=== PATIENT | female | born 1990 | race African-American/Black ===

== ENCOUNTER 2016-09-06 20:51 | Emergency (ER) | payer SELFPAY ==
[2016-09-06 20:59] VITALS: BP 111/70
[2016-09-06] MEDS ORDERED: LIDOCAINE 1%/EPINEPHRINE INJ 20 ML VIAL INJ ONE (21:30)
--- NOTE | 2016-09-06 21:33 | ER Document Report ---
ED Extremity Problem, Upper - General Chief Complaint: Arm Pain Stated Complaint: LEFT ARM PAIN Time Seen by Provider: 09/06/16 21:20 Notes: Patient is a 26-year-old female that comes emergency department for chief complaint of discomfort in her left arm at the location of her Nexplanon control, she states that she donated blood and ever since they did this the area has had intermittent tenderness. She also reports intermittent and irregular bleeding vaginally. Patient has almost had the implanted device in for 3 years, she states she believes she wants it taken out. She denies any fever, swelling, redness, denies any other symptoms. TRAVEL OUTSIDE OF THE [place] IN LAST 30 DAYS: No - Related Data Allergies/Adverse Reactions: amoxicillin [Amoxicillin] Allergy (Severe, Verified 10/10/14 00:57) Anaphylaxis Penicillins Allergy (Severe, Verified 10/10/14 00:57) Anaphylaxis citric acid Allergy (Intermediate, Verified 10/10/14 00:57) Anaphylaxis Past Medical History - General Information source: Patient - Social History Smoking Status: Never Smoker Frequency of alcohol use: None Drug Abuse: None Lives with: Family Family History: Reviewed & Not Pertinent Patient has suicidal ideation: No Patient has homicidal ideation: No - Medical History Medical History: Negative Renal/ Medical History: Denies: Hx Peritoneal Dialysis Past Surgical History: Reports: Hx Orthopedic Surgery - Immunizations Hx Diphtheria, Pertussis, Tetanus Vaccination: Yes Review of Systems - Review of Systems Constitutional: No symptoms reported EENT: No symptoms reported Cardiovascular: No symptoms reported Respiratory: No symptoms reported Gastrointestinal: No symptoms reported Genitourinary: No symptoms reported Female Genitourinary: See HPI Musculoskeletal: See HPI Skin: See HPI Hematologic/Lymphatic: No symptoms reported Neurological/Psychological: No symptoms reported Physical Exam - Vital signs Vitals: Temp Pulse Resp BP Pulse Ox 98.1 F 115 H 18 111/70 100 09/06/16 20:55 09/06/16 20:55 09/06/16 20:55 09/06/16 20:55 09/06/16 20:55 Interpretation: Normal - General General appearance: Alert, Anxious In distress: None - HEENT Head: Normocephalic, Atraumatic Eyes: Normal Conjunctiva: Normal Extraocular movements intact: Yes Eyelashes: Normal Pupils: PERRL Mouth/Lips: Normal Mucous membranes: Normal Pharynx: Normal Neck: Normal - Respiratory Respiratory status: No respiratory distress Chest status: Nontender Breath sounds: Normal. No: Decreased air movement Chest palpation: Normal - Cardiovascular Rhythm: Regular, Tachycardia Heart sounds: Normal auscultation, S1 appreciated, S2 appreciated Murmur: No - Abdominal Inspection: Normal Distension: No distension Bowel sounds: Normal Tenderness: Nontender Organomegaly: No organomegaly - Back Back: Normal, Nontender - Extremities General upper extremity: Other - There is the noted location of Nexplanon in the left medial arm, no erythema, swelling, or other abnormality noted, normal range of motion, normal distal neurovascular exam, normal strength of the upper extremity General lower extremity: Normal inspection, Nontender, Normal color, Normal ROM , Normal temperature, Normal weight bearing. No: Darshana's sign - Neurological Neuro grossly intact: Yes Cognition: Normal Orientation: AAOx4 Teague Coma Scale Eye Opening: Spontaneous Itzel Coma Scale Verbal: Oriented Teague Coma Scale Motor: Obeys Commands Teague Coma Scale Total: 15 Speech: Normal Motor strength normal: LUE, RUE, LLE, RLE Sensory: Normal - Psychological Associated symptoms: Normal affect, Normal mood - Skin Skin Temperature: Warm Skin Moisture: Dry Skin Color: Normal Course - Re-evaluation Re-evalutation: Patient initially nervous and mildly tachycardic, after discussion patient requested this removed, device removed with no abnormalities, afterwards tachycardia resolved, patient smiling and well-appearing. Wound dressed, discussed wound care, follow-up, return precautions, patient states understanding and agreement. - Vital Signs Vital signs: Temp Pulse Resp BP Pulse Ox 98.1 F 115 H 18 111/70 100 09/06/16 20:55 09/06/16 20:55 09/06/16 20:55 09/06/16 20:55 09/06/16 20:55 Procedures - Additional Procedures Left medial arm foreign body removal Notes: Foreign body removed from left medial forearm. Area cleaned with surgical cleanser, lidocaine with epinephrine used with about 1 cc to perform anesthesia , small 0.5 cm incision made horizontally, Nexplanon pushed through this with one end, it was grasped with needle drivers, removed with a tug in 1 intact piece. Area cleaned again, closure performed with Dermabond and Steri-Strips. No complications. Discharge - Discharge Clinical Impression: Left arm pain Condition: Stable Disposition: HOME, SELF-CARE Additional Instructions: The Steri-Strips should come off in the next couple of days, you can shower normally, the glue should dissolve and come off in about 5 days, if it does not you can apply topical antibiotic ointment to the area. Follow-up with [facility] for additional management. Return to emergency department for any concerning symptoms including redness, swelling, fever, or any other concerning symptoms. Referrals: [facility] [Provider Group] - Follow up as needed
== END 2016-09-06 23:20 | disposition home or self-care (01) ==
LOC: ER 20:51
PROC: 0JPV3HZ Removal of Contraceptive Device from Upper Extremity Subcutaneous Tissue and Fascia, Percutaneous Approach (ICD-10-PCS; principal; 2016-09-06)
DX: M79.602 Pain in left arm (principal); Z30.46 Encounter for surveillance of implantable subdermal contraceptive; N93.9 Abnormal uterine and vaginal bleeding, unspecified; R45.0 Nervousness; R00.0 Tachycardia, unspecified; Z87.892 Personal history of anaphylaxis; Z88.0 Allergy status to penicillin; Z91.018 Allergy to other foods
CPT/HCPCS: 99283; 11982; J3490

== ENCOUNTER 2016-10-21 22:56 | Emergency (ER) | payer SELFPAY | END 2016-10-21 23:30 | disposition left against medical advice (07) | LOC: ER 22:56 | DX: Z53.21 Procedure and treatment not carried out due to patient leaving prior to being seen by health care provider (principal) ==

== ENCOUNTER 2016-11-02 06:05 | Emergency (ER) | payer SELFPAY ==
--- NOTE | 2016-11-02 06:55 | ER Document Report ---
HPI - HPI Patient complains to provider of: Right shoulder pain Onset: Yesterday Onset/Duration: Gradual, Persistent Quality of pain: Throbbing Pain Level: 5 Context: 26-year-old female complaining of severe right shoulder pain that woke her up at 0500. Similar pain Fourth of October weekend and Motrin relieves it. Does not want to take any pain medicine. Lalo hair but not recently, last 2 weeks ago. No known injury. Associated Symptoms: None Exacerbated by: Movement - especially abduction Relieved by: Denies Similar symptoms previously: Yes Recently seen / treated by doctor: No - ROS ROS below otherwise negative: Yes Systems Reviewed and Negative: Yes All other systems reviewed and negative - REPRODUCTIVE LMP: 10-25-16 Reproductive: DENIES: : - DERM Skin Color: Normal Past Medical History - General Information source: Patient - Social History Smoking Status: Never Smoker Frequency of alcohol use: None Drug Abuse: None Lives with: Spouse/Significant other Family History: Reviewed & Not Pertinent Patient has suicidal ideation: No Patient has homicidal ideation: No - Medical History Medical History: Negative Notes: LMP OCTOBER 25- denies Renal/ Medical History: Denies: Hx Peritoneal Dialysis Surgical Hx: Negative Past Surgical History: Reports: Hx Orthopedic Surgery - Immunizations Hx Diphtheria, Pertussis, Tetanus Vaccination: Yes Vertical Provider Document - CONSTITUTIONAL Agree With Documented VS: Yes Exam Limitations: No Limitations General Appearance: Mild Distress - crying in pain and frustrated with the pain - INFECTION CONTROL TRAVEL OUTSIDE OF THE [place] IN LAST 30 DAYS: No - HEENT HEENT: Normocephalic - NECK Neck: Supple - RESPIRATORY Respiratory: Breath Sounds Normal, No Respiratory Distress O2 Sat by Pulse Oximetry: 100 - CARDIOVASCULAR Cardiovascular: Regular Rate, Regular Rhythm - MUSCULOSKELETAL/EXTREMETIES Musculoskeletal/Extremeties: Tender - right biceptital groove, right deltoid and trapezius, not hot, not red. negative: Edema Course - Re-evaluation Re-evalutation: 11/02/16 07:22 they decided that she wants anti inflammatory medication and muscle relaxer with the sling and heat - Vital Signs Vital signs: Temp Pulse Resp BP Pulse Ox 97.8 F 82 18 123/76 100 11/02/16 06:10 11/02/16 06:10 11/02/16 06:10 11/02/16 06:10 11/02/16 06:10 Procedures - Immobilization Right Arm Time completed: 07:34 Pre-Proc Neuro Vasc Exam: Normal Immobilizer type: Sling Performed by: RN Post-Proc Neuro Vasc Exam: Normal Alignment checked and good: Yes Discharge - Discharge Clinical Impression: right shoulder strain, Myalgia, Tendonitis Condition: Good Disposition: HOME, SELF-CARE Instructions: Tendonitis ([facility]), Sling as Treatment ([facility]), Warm Packs ([facility]), Anti-Inflammatory Medication ([facility]), Muscle Relaxers ([facility]), Muscle Strain ([facility]) Additional Instructions: warm compress sling for a few days see orthopedics for follow up to er if worse Please complete the patient satisfaction survey if you get one, and return it.. If you do not receive a survey, then you can go to the [facility] website, [email or web address] and place your comments about your very good care. Thank you very much. It was a pleasure being your medical provider today. Prescriptions: Ibuprofen [Motrin 600 mg Tablet] 600 mg PO Q8HP PRN #20 tablet PRN Reason: Cyclobenzaprine HCl [Flexeril 5 mg Tablet] 5 mg PO TID #15 tablet Referrals: MARQUEZ JAIN MD [ACTIVE STAFF] - Follow up as needed
[2016-11-02] MEDS ORDERED: CYCLOBENZAPRINE HCL 10 MG TABLET PO ONE (07:23)
[2016-11-02] MEDS ORDERED: IBUPROFEN 600 MG TABLET PO ONE (07:23)
[2016-11-02 08:13] VITALS: BP 98/67
== END 2016-11-02 08:12 | disposition home or self-care (01) ==
LOC: ER 06:05
DX: S43.401A Unspecified sprain of right shoulder joint, initial encounter (principal); M79.1 Myalgia; M77.9 Enthesopathy, unspecified; M25.511 Pain in right shoulder; X58.XXXA Exposure to other specified factors, initial encounter
CPT/HCPCS: 99283

== ENCOUNTER 2016-12-22 03:22 | Emergency (ER) | payer SELFPAY ==
--- NOTE | 2016-12-22 05:01 | RADIOLOGY REPORT (SQ) ---
EXAM DESCRIPTION: U/S OB TRANSVAGINAL W/O DOP COMPLETED DATE/TIME: 12/22/2016 4:46 am REASON FOR STUDY: vag bleeding preg COMPARISON: None. TECHNIQUE: Transvaginal static and realtime grayscale images acquired of the pelvis. Additional gerard cted spectral and color Doppler images recorded. All images stored on PACs. bHCG: Pending. LIMITATIONS: None. FINDINGS: UTERUS: The uterus measures 8.0 x 3.7 x 4.8 cm. The cervix measures 2.6 cm in length and it is closed. GESTATIONAL SAC: Yes. YOLK SAC: Yes. POLE: No. RIGHT ADNEXA: The right ovary measures 1.7 x 2.5 x 1.1 cm. Flow by Doppler was shown to the right ov bebo. LEFT ADNEXA: The left ovary measures 3.1 x 3.7 x 3.4 cm. Flow by Doppler was shown to the left ovary . There is a 1.6 cm cyst with peripheral vascularity, may represent a corpus luteum cyst. FREE FLUID: Trace amount of free fluid. IMPRESSION: Possible early intrauterine , no pole was seen at this time. Followup se rial beta HCG and ultrasound recommended to document a viable intrauterine and exclude a no nvisualized ectopic . Trimester of : First - 0 to 13 weeks. TECHNICAL DOCUMENTATION: JOB ID: [id number] [employer]- All Rights Reserved
--- NOTE | 2016-12-22 05:13 | ER Document Report ---
ED General - General Chief Complaint: Abdominal Pain Stated Complaint: POSSIBLE PANIC ATTACK WITH ABDOMINAL CRAMPING Time Seen by Provider: 12/22/16 03:49 Notes: Patient is a 26-year-old female at 5 weeks by last menstrual period who presents after having a fall will try to stand up in the end of her bed. Patient states she fell forward and hit her lower abdomen and back on the side of a dresser. She states approximately 5 minutes thereafter she did develop a sharp, constant stabbing pain in her right lower quadrant. States that she had multiple episodes of dry heaving associated with this pain. Nothing improves or worsens the pain. She denies any history of similar injuries or pain in the past. She has already had an appendectomy. She did have a small amount of vaginal spotting after that fall. Denies any pain at time of assessment. She has not seen her SHADING PAINTER regarding today's concerns. TRAVEL OUTSIDE OF THE [place] IN LAST 30 DAYS: No - Related Data Allergies/Adverse Reactions: amoxicillin [Amoxicillin] Allergy (Severe, Verified 12/22/16 03:36) Anaphylaxis Penicillins Allergy (Severe, Verified 12/22/16 03:36) Anaphylaxis citric acid Allergy (Intermediate, Verified 12/22/16 03:36) Anaphylaxis Past Medical History - General Information source: Patient - Social History Smoking Status: Never Smoker Chew tobacco use (# tins/day): No Frequency of alcohol use: None Drug Abuse: None Lives with: Spouse/Significant other Family History: Reviewed & Not Pertinent Renal/ Medical History: Denies: Hx Peritoneal Dialysis Past Surgical History: Reports: Hx Orthopedic Surgery - Immunizations Hx Diphtheria, Pertussis, Tetanus Vaccination: Yes Review of Systems - Review of Systems Notes: Constitutional: Negative for fever. HENT: Negative for sore throat. Eyes: Negative for visual changes. Cardiovascular: Negative for chest pain. Respiratory: Negative for shortness of breath. Gastrointestinal: Positive for abdominal pain Genitourinary: Negative for dysuria. Musculoskeletal: Negative for back pain. Skin: Negative for rash. Neurological: Negative for headaches, weakness or numbness. 10 point ROS negative except as marked above and in HPI. Physical Exam - Vital signs Vitals: Temp Pulse Resp BP Pulse Ox 98.5 F 106 H 18 123/93 H 100 12/22/16 03:28 12/22/16 03:28 12/22/16 03:28 12/22/16 03:28 12/22/16 03:28 Interpretation: Tachycardic Notes: PHYSICAL EXAMINATION: GENERAL: Well-appearing, well-nourished and in no acute distress. HEAD: Atraumatic, normocephalic. EYES: Pupils equal round and reactive to light, extraocular movements intact, sclera anicteric, conjunctiva are normal. ENT: nares patent, oropharynx clear without exudates. Moist mucous membranes. NECK: Normal range of motion, supple without lymphadenopathy LUNGS: Breath sounds clear to auscultation bilaterally and equal. No wheezes rales or rhonchi. HEART: Regular rate and rhythm without murmurs ABDOMEN: Soft, nontender, normoactive bowel sounds. No guarding, no rebound. No masses appreciated. EXTREMITIES: Normal range of motion, no pitting or edema. No cyanosis. NEUROLOGICAL: No focal neurological deficits. Moves all extremities spontaneously and on command. PSYCH: Normal mood, normal affect. SKIN: Warm, Dry, normal turgor, no rashes or lesions noted. Course - Re-evaluation Re-evalutation: 12/22/16 05:10 Patient presents with a mild amount of vaginal bleeding in the setting of an early first trimester . Patient did have mechanical fall tonight striking her lower abdomen and back. She has no abdominal tenderness at time of my exam. Transvaginal ultrasound is unable to visualize an definitive intrauterine at this time. Quantitative beta hCG is above 1500. No active bleeding at time of presentation. She is Rh positive. Patient's abdominal exam is otherwise benign without any focal tenderness. I do not suspect an acute appendicitis, pyelonephritis, cystitis, or bowel obstruction. At this time I have informed the patient that she needs to return to the emergency department or the women's clinic in 48 hours for recheck of her quantitative beta hCG to assess whether or not this is a normal or a possible ectopic . At this time will discharge with return precautions and follow-up recommendations. Verbal discharge instructions given a the bedside and opportunity for questions given. Medication warnings reviewed. Patient is in agreement with this plan and has verbalized understanding of return precautions and the need for primary care follow-up in the next 24-72 hours. - Vital Signs Vital signs: Temp Pulse Resp BP Pulse Ox 98.5 F 106 H 18 123/93 H 100 12/22/16 03:28 12/22/16 03:28 12/22/16 03:28 12/22/16 03:28 12/22/16 03:28 - Laboratory Laboratory results interpreted by me: 12/22/16 04:15 Beta HCG, Quant 2802.70 H - Diagnostic Test Radiology reviewed: Reports reviewed Discharge - Discharge Clinical Impression: Vaginal bleeding during , antepartum Condition: Good Disposition: HOME, SELF-CARE Additional Instructions: You need to return to the ED or the women's health clinic in 48 hours for a recheck of your hormone level. The ultrasound shows a likely intra- uterine but you are also very early in your . Please return if you develop severe abdominal pain, bleeding that goes through more than 2 pads for more than 2 hours, pass out, or have any other symptoms that are concerning to you. Please follow-up closely with your OBGYN regarding todays visit. Referrals: ALTAF MUÑIZ DO [[facility]] - 12/23/16
[2016-12-22 05:30] VITALS: BP 111/68
== END 2016-12-22 05:26 | disposition home or self-care (01) ==
LOC: ER 03:22
DX: O20.9 Hemorrhage in early pregnancy, unspecified (principal); O26.891 Other specified pregnancy related conditions, first trimester; R10.31 Right lower quadrant pain; W06.XXXA Fall from bed, initial encounter; R00.0 Tachycardia, unspecified; Z3A.01 Less than 8 weeks gestation of pregnancy; Z87.892 Personal history of anaphylaxis; Z88.0 Allergy status to penicillin; Z91.018 Allergy to other foods; Z90.49 Acquired absence of other specified parts of digestive tract
CPT/HCPCS: 36415; 76817; 84702; 99284

== ENCOUNTER 2017-01-07 04:47 | Emergency (ER) | payer MEDICAID ==
[2017-01-07] MEDS ORDERED: NORMAL SALINE 1000 ML 1,000 ML IV ONE (05:26)
[2017-01-07] MEDS ORDERED: ONDANSETRON HCL INJ/PF 4 MG/2 ML SDV IV ONE (05:26)
[2017-01-07 05:30] LABS: ABSOLUTE BASOPHILS # (AUTO) 0.1 10^3/uL (0.0-0.2); ABSOLUTE EOSINOPHILS # (AUTO) 0.1 10^3/uL (0.0-0.6); ABSOLUTE LYMPHOCYTES (AUTO) 1.5 10^3/uL (0.5-4.7); ABSOLUTE MONOCYTES (AUTO) 0.8 10^3/uL (0.1-1.4); ABSOLUTE NEUT (AUTO) 8.8 10^3/uL (1.7-8.2); BASOPHILS % (AUTO) 0.5 % (0-2); EOSINOPHILS % (AUTO) 0.6 % (0-6); HEMATOCRIT 34.8 % (36.0-47.0); HEMOGLOBIN 11.9 g/dL (12.0-15.5); HGB HCT DIFFERENCE 0.9; LYMPHOCYTES % (AUTO) 13.4 % (13-45); MEAN CORPUSCULAR HEMOGLOBIN 27.8 pg (27.0-33.4); MEAN CORPUSCULAR HGB CONC 34.2 g/dL (32.0-36.0); MEAN CORPUSCULAR VOLUME 81 fl (80-97); MONOCYTES % (AUTO) 6.9 % (3-13); RED BLOOD COUNT 4.27 10^6/uL (3.72-5.28); RED CELL DISTRIBUTION WIDTH 12.2 % (11.5-14.0); SEGMENTED NEUTROPHILS % (AUTO) 78.6 % (42-78); WHITE BLOOD COUNT 11.2 10^3/uL (4.0-10.5)
[2017-01-07 05:58] LABS: ALANINE AMINOTRANSFERASE 22 U/L (9-52); ALBUMIN 4.4 g/dL (3.5-5.0); ALKALINE PHOSPHATASE 48 U/L (38-126); ANION GAP 13 (5-19); ASPARTATE AMINO TRANSFERASE 19 U/L (14-36); BILIRUBIN,DIRECT 0.3 mg/dL (0.0-0.4); BILIRUBIN,TOTAL 0.7 mg/dL (0.2-1.3); BLOOD UREA NITROGEN 8 mg/dL (7-20); CALCIUM 10.2 mg/dL (8.4-10.2); CARBON DIOXIDE 24 mmol/L (22-30); CHLORIDE 103 mmol/L (98-107); CREATININE RESULT 0.71 mg/dL (0.52-1.25); GLUCOSE 81 mg/dL (75-110); LIPASE 75.7 U/L (23-300); POTASSIUM 3.8 mmol/L (3.6-5.0); SODIUM 139.7 mmol/L (137-145); TOTAL PROTEIN 6.8 g/dL (6.3-8.2)
[2017-01-07] MEDS ORDERED: CEFTRIAXONE INJ 500 MG VIAL IM ONE (06:27)
[2017-01-07] MEDS ORDERED: LIDOCAINE 1% INJ-PF (10 MG/ML) 30 ML SDV INFIL ONE (06:27)
--- NOTE | 2017-01-07 06:40 | ER Document Report ---
ED GI/ - General Information source: Patient TRAVEL OUTSIDE OF THE [place] IN LAST 30 DAYS: No - HPI Patient complains to provider of: Vaginal bleeding - spotting, Vomiting Associated symptoms: Other - see above <TANIA BERMUDEZ - Last Filed: 01/07/17 11:14> <SKYE FERGUSON - Last Filed: 01/07/17 15:01> - General Chief Complaint: OB Problem (<20wks) Stated Complaint: ABDOMINAL PAIN Time Seen by Provider: 01/07/17 06:21 Notes: Patient is a 26 year old female who presents to the ED with complaints of nausea and vomiting. Patient states she has been unable to hold any food down since Thursday (01/05/2017) and she has also been having dry heaving. She has been taking Dramamine for the nausea and states it has made her symptoms worse. She denies any pain currently but states that she has had some burning in her lower abdomen but states she feels it is from being hungry. She was having pain on her left side, she states she has a history of ovarian cysts and states the pain she was feeling felt similar to that. on 12/22/16 patient had an ultrasound that showed a possible intrauterine . She states she has had some spotting. (TANIA BERMUDEZ) - Related Data Allergies/Adverse Reactions: amoxicillin [Amoxicillin] Allergy (Severe, Verified 01/07/17 04:56) Anaphylaxis Penicillins Allergy (Severe, Verified 01/07/17 04:56) Anaphylaxis citric acid Allergy (Intermediate, Verified 01/07/17 04:56) Anaphylaxis Home Medications: Current Home Medications No122/Iron/Folic Acid [ Multi Tablet] 1 each PO DAILY 01/07/17 [History] Past Medical History - General Information source: Patient - Social History Smoking Status: Unknown if Ever Smoked Family History: Reviewed & Not Pertinent Patient has suicidal ideation: No Patient has homicidal ideation: No Renal/ Medical History: Denies: Hx Peritoneal Dialysis Past Surgical History: Reports: Hx Appendectomy, Hx Orthopedic Surgery - Immunizations Hx Diphtheria, Pertussis, Tetanus Vaccination: Yes <TANIA BERMUDEZ - Last Filed: 01/07/17 11:14> Review of Systems - Review of Systems Constitutional: No symptoms reported EENT: No symptoms reported Cardiovascular: No symptoms reported Respiratory: No symptoms reported Gastrointestinal: See HPI, Nausea, Vomiting. denies: Abdominal pain Genitourinary: No symptoms reported Female Genitourinary: See HPI, , Other - vaginal spotting Musculoskeletal: No symptoms reported Skin: No symptoms reported Hematologic/Lymphatic: No symptoms reported Neurological/Psychological: No symptoms reported <LARAILATANIA - Last Filed: 01/07/17 11:14> Physical Exam - General General appearance: Alert, Other - appears uncomfortable - HEENT Head: Normocephalic, Atraumatic Eyes: Normal Extraocular movements intact: Yes Pupils: PERRL Mucous membranes: Dry - Respiratory Respiratory status: No respiratory distress Breath sounds: Normal - Cardiovascular Rhythm: Regular Heart sounds: Normal auscultation Murmur: No - Abdominal Inspection: Normal Distension: No distension Tenderness: Nontender - Back Back: Normal - Extremities General upper extremity: Normal inspection, Normal ROM General lower extremity: Normal inspection, Normal ROM - Neurological Neuro grossly intact: Yes - Psychological Associated symptoms: Normal affect, Normal mood - Skin Skin Temperature: Warm Skin Moisture: Dry Skin Color: Normal <LARATANAI - Last Filed: 01/07/17 11:14> - Vital signs Vitals: Temp Pulse Resp BP Pulse Ox 99.2 F 93 20 112/66 99 01/07/17 04:55 01/07/17 04:55 01/07/17 04:55 01/07/17 04:55 01/07/17 04:55 Course - Laboratory Result Diagrams: 01/07/17 05:20 01/07/17 05:20 <LARATANIA - Last Filed: 01/07/17 11:14> - Laboratory Result Diagrams: 01/07/17 05:20 01/07/17 05:20 - Diagnostic Test Radiology reviewed: Reports reviewed <SKYE FERGUSON - Last Filed: 01/07/17 15:01> - Re-evaluation Re-evalutation: 01/07/17 Patient is a 26-year-old female who comes in complaining of vomiting. Patient improved after fluids, Zofran, and Reglan. She will be discharged home with prescriptions for nausea medicine. Ultrasound showing a 7 week 3 day . No acute findings on blood work. Patient is to follow-up with her doctor. She has been given a copy of her blood work and ultrasound. Stable for discharge. Return if any worsening or concerning symptoms. Taking p.o. in the room. (SKYE FERGUSON) - Vital Signs Vital signs: Temp Pulse Resp BP Pulse Ox 97.6 F 87 16 97/54 L 96 01/07/17 08:02 01/07/17 08:02 01/07/17 08:02 01/07/17 08:02 01/07/17 08:02 - Laboratory Laboratory results interpreted by me: 01/07/17 01/07/17 05:20 05:20 WBC 11.2 H Hgb 11.9 L Hct 34.8 L Seg Neutrophils % 78.6 H Absolute Neutrophils 8.8 H Beta HCG, Quant 53225.00 H Discharge <TANIA BERMUDEZ - Last Filed: 01/07/17 11:14> <SKYE FERGUSON - Last Filed: 01/07/17 15:01> - Discharge Clinical Impression: Vomiting of Condition: Stable Disposition: HOME, SELF-CARE Instructions: Hyperemesis Gravidarum ([facility]), Intravenous (IV) Fluids ([facility]) Additional Instructions: Please follow-up with 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 Prescriptions: Ondansetron [Zofran Odt 4 mg Tablet] 4 mg PO Q6HP PRN #30 tab.rapdis PRN Reason: Metoclopramide HCl [Reglan 10 mg Tablet] 1 tab PO TIDP PRN #25 tablet PRN Reason: Forms: Return to Work Scribe Attestation: 01/07/17 15:01 I personally performed the services described in the documentation, reviewed and edited the documentation which was dictated to the scribe in my presence, and it accurately records my words and actions. (SKYE FERGUSON) Scribe Documentation - Scribe Written by Sarah:: sarah Trammell, 01/07/2017, 0730 acting as scribe for :: Rahul <TANIA BERMUDEZ - Last Filed: 01/07/17 11:14>
[2017-01-07] MEDS ORDERED: METOCLOPRAMIDE HCL INJ/PF 10 MG/2 ML SDV IV ONE (06:44)
[2017-01-07 07:01] LABS: APPEARANCE,URINE SLIGHTLY-CLOUDY; BILIRUBIN,URINE NEGATIVE (NEGATIVE); GLUCOSE, URINE NEGATIVE (NEGATIVE); KETONES,URINE NEGATIVE (NEGATIVE); LEUKOCYTE ESTERASE,URINE NEGATIVE (NEGATIVE); NITRITE,URINE NEGATIVE (NEGATIVE); PROTEIN,URINE NEGATIVE (NEGATIVE); URINE SPECIFIC GRAVITY 1.027; UROBILINOGEN,URINE NEGATIVE mg/dL (<2.0)
--- NOTE | 2017-01-07 07:18 | RADIOLOGY REPORT (SQ) ---
EXAM DESCRIPTION: U/S OB TRANSVAG W/DOPPLER COMPLETED DATE/TIME: 01/07/2017 6:59 am REASON FOR STUDY: pain, COMPARISON: 12/22/2016. TECHNIQUE: Transvaginal static and realtime grayscale images acquired of the pelvis. Additional gerard cted spectral and color Doppler images recorded. All images stored on PACs. bHCG: Not available. LIMITATIONS: None. FINDINGS: FETUS: Living intrauterine . EGA: 7 weeks 3 days RULA: 08/23/2017 FHR: 147 beats per minute. SUBCHORIONIC BLEED: Yes. SIZE OF BLEED: 1.0 cm subchorionic hemorrhage. UTERUS: No masses. No anomalies. CERVICAL LENGTH: 3.2 cm. Closed. RIGHT ADNEXA: Normal ovary with normal vascular flow. No adnexal free fluid. No adnexal masses. 2.1 cm. LEFT ADNEXA: Normal ovary with normal vascular flow. No adnexal free fluid. No adnexal masses. 3.9 cm including a 2.2 cm corpus luteal cyst. FREE FLUID: None. OTHER: No other significant finding. IMPRESSION: LIVING INTRAUTERINE , at-risk with a small subchorionic hemorrhage. EGA 7 weeks and 3 days Trimester of : First - 0 to 13 weeks. COMMENT: HCG levels in early chart *3 weeks: 5-50 mIU/ml *4 weeks: 5-426 mIU/ml *5 weeks: 18-7,340 mIU/ml *6 weeks: 1,080-56,500 mIU/ml *7-8 weeks: 7,560-229,000 mIU/ml *9-12 weeks: 25,700- 288,000 mIU/ml *13-16 weeks: 13,300-254,000 mIU/ml *17-24 weeks: 4,060-165,400 mIU/ml *25-40 weeks: 3,640-117,000 mIU/ml TECHNICAL DOCUMENTATION: JOB ID: [id number]- All Rights Reserved
[2017-01-07 08:28] VITALS: BP 97/54
== END 2017-01-07 08:05 | disposition home or self-care (01) ==
LOC: ER 04:47
DX: R11.2 Nausea with vomiting, unspecified (principal); O46.91 Antepartum hemorrhage, unspecified, first trimester; R10.9 Unspecified abdominal pain; Z3A.01 Less than 8 weeks gestation of pregnancy; Z79.899 Other long term (current) drug therapy
CPT/HCPCS: 99284; 96361; 96374; 96375; 36415; 87086; 84702; 83690; 85025; 80053; 81001; 76817; 93976; J2765; J2405; J7030